=== PATIENT | female | born 1960 | race Caucasian/White ===

== ENCOUNTER 2020-10-15 20:45 | Inpatient (IN) | payer MEDICARE, OTHER ==
[~2020-10-15] VITALS: Ht 170.2 cm; Wt 52.6 kg
--- NOTE | 2020-10-15 20:55 | NUR ---
BIB [facility] FOR MEDICAL CLEARANCE FROM [facility], PLACED ON 5150 FOR DTS AND GD. PATIENT RESPONSIVE TO NAME BY OPENING EYES. IN ROOM AIR AND SATURAITON IS AT 100%. RESPIRATION REGULAR AND UNLABORED. PATIENT IS IN NO APPARENT DISTRESS. ATTACHED ON A MONITR. WARM BLANKET PROVIDED FOR COMFORT. WILL CONTINUE TO MONITOR THE PATIENT.
--- NOTE | 2020-10-15 21:25 | NUR ---
URINE COLLECTED AND SENT TO LAB
[2020-10-15 21:29] LABS: BASOPHILS % (AUTO) 0.7 % (0.0-2.0); EOSINOPHILS % (AUTO) 3.2 % (0.0-6.0); HEMATOCRIT 38 % (33-45); HEMOGLOBIN 12.2 g/dL (11.5-14.8); LYMPHOCYTES # (AUTO) 2.5 /CMM (0.8-4.8); LYMPHOCYTES % (AUTO) 39.6 % (20.0-44.0); MEAN CORPUSCULAR HGB CONC 32 g/dl (31.0-36.0); MEAN CORPUSCULAR VOLUME 88 fL (82-100); MONOCYTES # (AUTO) 0.6 /CMM (0.1-1.30); MONOCYTES % (AUTO) 10.3 % (2.0-12.0); NEUTROPHILS # (AUTO) 2.9 /CMM (1.8-8.9); NEUTROPHILS % (AUTO) 46.2 % (43.0-81.0); PLATELET COUNT (AUTO) 292 /CMM (150-450); RED BLOOD CELL COUNT(AUTO) 4.33 MIL/uL (4.0-5.2); WHITE BLOOD COUNT (AUTO) 6.2 K/uL (4.3-11.0)
[2020-10-15 21:49] LABS: CALCIUM, SERUM 10.1 mg/dL (8.5-10.1); CARBON DIOXIDE 26 mmol/L (21-32); CHLORIDE 107 mmol/L (98-107); CREATININE 0.6 mg/dL (0.6-1.3); GLUCOSE 94 mg/dL (74-106); SODIUM SERUM 140 mmol/L (136-145); UREA NITROGEN, BLOOD 26 mg/dL (7-18)
[2020-10-15 21:55] LABS: ALANINE AMINOTRANSFERASE 50 U/L (12-78); ALBUMIN 3.2 g/dL (3.4-5.0); ALCOHOL, BLOOD < 3 mg/dL (0-0); ALKALINE PHOSPHATASE 91 U/L (46-116); ASPARTATE AMINOTRANSFERASE 69 U/L (15-37); BILIRUBIN,DIRECT 0.1 mg/dL (0.0-0.2); BILIRUBIN,TOTAL 0.5 mg/dL (0.2-1.0); TOTAL PROTEIN, SERUM 6.5 g/dL (6.4-8.2)
[2020-10-15 21:56] LABS: ACETAMINOPHEN 0 ug/ml (10-30)
[2020-10-15 22:00] LABS: BILIRUBIN,URINE NEGATIVE (NEGATIVE); COLOR,URINE YELLOW (YELLOW); LEUKOCYTE ESTERASE ,URINE NEGATIVE (NEGATIVE); NITRITE, URINE NEGATIVE (NEGATIVE); PH,URINE 5.5 (5.0-8.0); PROTEIN,URINE NEGATIVE (NEGATIVE); UGLUCOSE NEGATIVE (NEGATIVE); UROBILINOGEN,URINE 0.2 EU/dL (0.2)
[2020-10-15] MEDS ORDERED: IV NS 0.9% 1,000 ML IV ONE (22:00)
--- NOTE | 2020-10-15 22:45 | NUR ---
COVID ANTIGEN NEGATIVE
--- NOTE | 2020-10-15 23:12 | NUR ---
report given to jerome romero for ulices; pt will be transported to gps
--- NOTE | 2020-10-15 23:20 | NUR ---
PT WAS TRANSFERRED TO GPS IN STABLE CONDITION
--- NOTE | 2020-10-15 23:30 | NUR ---
GPS ARCHITECT MANAGER NOTES: ADMITTED A 60YO FEMALE ON 515 HOLD FOR DANGER TO SELF AND GRAVE DISABILITY. PER HOLD, THE PATIENT WAS SCREAMING AND CURSING IN THE STREETS OF [place] AND [place]IA [place]. PATIENT APPEARS VERY UNKEMPT, DISHEVELED, DISORGANIZED, NOT ANSWERING TO ASSESSMENT QUESTIONS AND UNABLE TO PROVIDE A MEANINGFUL MEDICAL HISTORY PATIENT HAS BEEN ASLEEP SINCE ADMITTANCE TO THE UNIT. PATIENT IS UNDER THE CARE OF DR. OSMAN AND MARCELA ROJAS FOR PSYCH AND MEDICAL DOCTORS RESPECTIVELY. UPON FACE TO FACE ASSESSMENT, PATIENT PRESENTS ALERT AND ORIENTED X1 TO NAME ONLY. SHE IS NOT COOPERATIVE WITH STAFF. SHE HAS THE TENDENCY TO HIT THE STAFF. CARE PLAN FORMULATE SPECIFIC FOR THE PATIENT. Q15 MIN CHECKS INITIATED. BELONGINGS AND CONTRABAND CHECKED. ENVIRONMENTAL SAFETY CHECK DONE. PATIENT HAS NO KNOWN MEDICAL HISTORY. UNABLE TO ESTABLISH HER ALLERGIES WELL. PATIENT IS RESTING IN THE ROOM, BED ALARM KEPT ON. PATIENT ADVISED OF THE HOLD. OFFERED FLUID AND SNACKS. WILL MONITOR PATIENT FOR MOOD, SAFETY AND BEHAVIOR.
[2020-10-15 23:42] VITALS: BP 104/41
[2020-10-16] MEDS ORDERED: BLOOD SUGAR DIAGNOSTIC 1 EACH STRIP IN ONE (01:00)
[2020-10-16 07:53] LABS: ALBUMIN 2.9 g/dL (3.4-5.0); BILIRUBIN,TOTAL 0.5 mg/dL (0.2-1.0); CALCIUM, SERUM 9.5 mg/dL (8.5-10.1); CREATININE 0.5 mg/dL (0.6-1.3); POTASSIUM 3.8 mmol/L (3.5-5.1)
[2020-10-16 08:00] VITALS: BP 94/58
--- NOTE | 2020-10-16 14:15 | NUR ---
Psychosocial Attempt: SW made an attempt to speak to the pt in regards to her psychosocial assessment but the pt was asleep and was not easily arousable. SW will make another attempt the next day.
[2020-10-16 16:00] VITALS: BP 92/58
--- NOTE | 2020-10-16 18:48 | NUR ---
appetite good,but sleeping most of the day.
[2020-10-16 20:00] VITALS: BP 92/44
--- NOTE | 2020-10-16 20:00 | NUR ---
IN BED ASLEEP RESP EVEN AND UNLABORED.WHEN NAME SPOKE WILL TURN AWY FROM ME NOT OPENING HER EYES RESP EVEN AND UNLABORED.
[2020-10-16] MEDS ORDERED: ACETAMINOPHEN 325 MG TABLET PO PRN (20:30)
[2020-10-16] MEDS ORDERED: MAG HYDROX/AL HYDROX/SIMETH 30 ML UDC PO PRN (21:00)
--- NOTE | 2020-10-17 06:26 | NUR ---
ending notes: REFUSED 5/12 AM LAB DRAWS REFUSED TO GIVE A URINE SPEICMEN.
[2020-10-17 08:00] VITALS: BP 98/65
[2020-10-17 09:57] LABS: CREATININE 0.7 mg/dL (0.6-1.3)
[2020-10-17 10:54] LABS: CHOLESTEROL 169 mg/dL (<200); HDL CHOLESTEROL 62 mg/dL (40-60); LDL 90 mg/dL (0-99); TRIGLYCERIDES 113 mg/dL (30-150)
--- NOTE | 2020-10-17 12:05 | NUR ---
Psychosocial Attempt: SW made an attempt to speak to the pt in regards to her psychosocial assessment but the pt was asleep and was not arousable. Nurse informed the pt it was due to the pts methamphetamine abuse. SW will make another attempt the next day.
[2020-10-17 16:00] VITALS: BP 131/53
[2020-10-17] MEDS: OLANZAPINE 2.5 MG TABLET PO SCH (17:15)
[2020-10-17 21:30] VITALS: BP 140/85
[2020-10-18 08:00] VITALS: BP 109/76
[2020-10-18] MEDS: OLANZAPINE 2.5 MG TABLET PO SCH ×2 (09:02→20:58)
--- NOTE | 2020-10-18 15:12 | NUR ---
Initial Discharge Plan: SW will facilitate pts discharge plan to [facility] ([address] [place] [place] [address]; [phone]) or seek alternative placement. NANCY will work with the pt and the MD regarding appropriate discharge planning. SW will form a safe and proper discharge plan.
[2020-10-18 16:00] VITALS: BP 103/70
--- NOTE | 2020-10-18 19:05 | NUR ---
RN-NOTES UNABLE TO COLLECT URINE THIS SHIFT DUE TO PATIENT REFUSED TO GIVE URINE SPECIMEN. ENDORSED TO INCOMING NURSE FOR FOLLOW UP AND CONTINUITY OF CARE.
--- NOTE | 2020-10-18 19:24 | NUR ---
RN NOTES: RECEIVED PATIENT IN BED, AWAKE. ASKED IF SHE CAN KEEP HER URINE IN THE HAT FOR SPECIMEN COLLECTION, PATIENT DID NOT RESPOND, JUST MUMBLED AND TURNED HER FACE TO THE SIDE. AMBULATORY. AFTER FEW MINUTES, PATIENT WALKED OUTSIDE THE ROOM TO THE HALLWAY TALKING AND WENT BACK TO THE ROOM AND SLAMMED THE DOOR AND YELLING.
[2020-10-18 23:41] VITALS: BP 100/62
--- NOTE | 2020-10-19 02:37 | NUR ---
PATIENT TOOK SHOWER AT 2140.
[2020-10-19 08:00] VITALS: BP 118/68
[2020-10-19] MEDS: OLANZAPINE 5 MG TABLET PO SCH (08:12)
[2020-10-19] MEDS: MAGNESIUM HYDROXIDE 30 ML UDC PO PRN (15:51)
--- NOTE | 2020-10-19 15:51 | NUR ---
RN-NOTES PATIENT C/O CONSTIPATION, MOM 30ML GIVEN PRN ORDER. WILL CONT. MONITORING.
[2020-10-19 16:00] VITALS: BP 97/63
[2020-10-19 20:27] VITALS: BP 107/79
[2020-10-19 20:28] VITALS: BP 107/79
[2020-10-19] MEDS: OLANZAPINE 10 MG TABLET PO SCH (21:18)
--- NOTE | 2020-10-20 04:24 | NUR ---
RN NOTE PATIENT HAS BEEN SLEEPING WELL, NO BEHAVIOR EPISODES NOTED AT THIS TIME.
[2020-10-20 08:00] VITALS: BP 94/64
[2020-10-20] MEDS: OLANZAPINE 5 MG TABLET PO SCH (11:07)
--- NOTE | 2020-10-20 15:46 | NUR ---
KEEPS T SELF AND STAYS IN RM.ALL DAY.
[2020-10-20 16:00] VITALS: BP 105/66
[2020-10-20 20:54] VITALS: BP 99/74
[2020-10-20 21:00] VITALS: BP 99/74
[2020-10-20] MEDS: OLANZAPINE 10 MG TABLET PO SCH (21:24)
[2020-10-20] MEDS: MAGNESIUM HYDROXIDE 30 ML UDC PO PRN (21:26)
--- NOTE | 2020-10-20 21:27 | NUR ---
RN NOTE: LAXATIVE GIVEN PATIENT VERBALIZED THAT SHE IS CONSTIPATED & REQUESTED TO TAKE LAXATIVE, PRN MILK OF MAGNESIA 30 ML PO ADMINISTERED. WILL CONTINUE TO MONITOR.
--- NOTE | 2020-10-20 21:29 | NUR ---
RN NOTE URINE SPECIMEN COLLECTED & CALLED LAB TO [employer] URINE SPECIMEN.
[2020-10-20 21:50] VITALS: BP 107/71
[2020-10-21 00:49] LABS: BILIRUBIN,URINE NEGATIVE (NEGATIVE); COLOR,URINE YELLOW (YELLOW); LEUKOCYTE ESTERASE ,URINE NEGATIVE (NEGATIVE); NITRITE, URINE NEGATIVE (NEGATIVE); PH,URINE 6.5 (5.0-8.0); PROTEIN,URINE NEGATIVE (NEGATIVE); UGLUCOSE NEGATIVE (NEGATIVE); UROBILINOGEN,URINE 0.2 EU/dL (0.2)
[2020-10-21 00:53] LABS: BACTERIA,URINE Few /HPF (None Seen); RBC,URINE 0-2 /HPF (0-2); SQUAMOUS EPITHELIAL CELL,UR Few /HPF (None Seen); WBC,URINE 0-2 /HPF (0-3)
[2020-10-21 08:00] VITALS: BP 90/55
[2020-10-21] MEDS: OLANZAPINE 5 MG TABLET PO SCH (08:02)
[2020-10-21 16:00] VITALS: BP 110/75
[2020-10-21 21:45] VITALS: BP 107/77
[2020-10-21] MEDS: OLANZAPINE 10 MG TABLET PO SCH (21:58)
--- NOTE | 2020-10-22 06:47 | NUR ---
GPS RN CLOSING NOTES 220 PATIENT IN BED. ISOLATED. NO S/S OF DISTRESS. NO C/O PAIN.ALL SCHED MEDS GIVEN. SAFETY KEPT IN PLACE: BED IN LOWEST, LOCKED POSITION; BED ALARM IN PLACE. ALL NEEDS ATTENDED. WILL ENDORSE CARE TO MORNING SHIFT NURSE.
[2020-10-22 08:00] VITALS: BP 95/57
[2020-10-22] MEDS: OLANZAPINE 5 MG TABLET PO SCH (09:21)
--- NOTE | 2020-10-22 10:38 | NUR ---
Probable Cause Hearing: Pts [phone] hold was upheld for grave disability.
[2020-10-22 16:00] VITALS: BP 96/64
[2020-10-22 19:37] VITALS: BP 106/71
[2020-10-22] MEDS: OLANZAPINE 10 MG TABLET PO SCH (22:17)
[2020-10-22] MEDS: TEMAZEPAM 15 MG CAPSULE PO PRN (23:22)
--- NOTE | 2020-10-22 23:30 | NUR ---
GPS RN NOTES: PATIENT REQUESTED SLEEP FOR MEDICATION. RESTORIL 15MG/1TAB GIVEN PO PRN ORDERED AT 2322. WILL CONTINUE TO MONITOR.
[2020-10-23 08:00] VITALS: BP 102/59
[2020-10-23] MEDS: OLANZAPINE 5 MG TABLET PO SCH (08:40)
[2020-10-23 16:00] VITALS: BP 92/63
[2020-10-23] MEDS ORDERED: OLANZAPINE 10 MG VIAL IM STA (16:59)
[2020-10-23] MEDS ORDERED: LORAZEPAM INJ 2 MG/ML VIAL IM STA (16:59)
--- NOTE | 2020-10-23 17:13 | NUR ---
RN NOTE: EMERGENCY INJECTION PT BEGAN YELLING AND SCREAMING AT STAFF AND PATIENTS. SCREAMING PROFANITIES. UNABLE TO BE REDIRECTED. POSTURING TOWARD STAFF. PACING HALLWAYS. VERBALLY THREATENING STAFF. AGGRESSIVE BEHAVIOR TOWARD STAFF AND PATIENTS. HIGH RISK FOR SELF INJURY AND DANGER TO OTHERS. ORDER FROM DR. DAUGHERTY FOR ZYPREXA 5MG AND ATIVAN 1MG IM. IM ADMINISTERED TO RIGHT GLUTEUS. PATIENT TOLERATED WELL. WILL CONT TO MONITOR BEHAVIOR, SAFETY AND EFFECTIVENESS OF IM INJECTION
[2020-10-23 20:29] VITALS: BP 106/54
[2020-10-23] MEDS: OLANZAPINE 10 MG TABLET PO SCH (21:41)
--- NOTE | 2020-10-24 06:51 | NUR ---
GPS RN CLOSING NOTES: PATIENT IS LAYING ON BED SLEEPING. SLEPT 5HRS THIS SHIFT. PATIENT WAS MED COMPLIANT THIS SHIFT. NO S/S OF DISTRESS. RESPIRATION EVEN AND UNLABORED WITH EQUAL RISE AND FALL OF THE CHEST ON ROOM AIR. ALL PATIENT CARE NEEDS HAVE BEEN MET ANTICIPATED. BED IN LOWEST POSITION AND LOCKED WITH SIDE RAILS UP X2. WILL CONTINUE TO MONITOR FOR SAFETY, MOOD AND BEHAVIOR AND ENDORSE TO AM SHIFT
[2020-10-24 08:00] VITALS: BP 101/50
[2020-10-24] MEDS: LORAZEPAM 1 MG TABLET PO PRN (08:56)
[2020-10-24] MEDS: OLANZAPINE 5 MG TABLET PO SCH ×2 (08:56→21:08)
--- NOTE | 2020-10-24 08:57 | NUR ---
RN NOTE: ANXIETY AND AGITATION PT PACING IN ROOM. RESPONDING TO INTERNAL STIMULI. YELLING TO SELF. VISIBLY AGITATED. UNABLE TO REDIRECT AND CALM. MEDICATED WITH ATIVAN 1MG PO PRN. WILL CONT TO MONITOR FOR SAFETY AND BEHAVIOR WELL PRN EFFECTIVENESS.
[2020-10-24 16:00] VITALS: BP 121/74
[2020-10-24 20:00] VITALS: BP 105/59
[2020-10-24] MEDS: TEMAZEPAM 15 MG CAPSULE PO PRN (23:05)
[2020-10-25 08:00] VITALS: BP 97/70
[2020-10-25] MEDS: OLANZAPINE 5 MG TABLET PO SCH ×2 (08:02→21:23)
[2020-10-25] MEDS: LORAZEPAM 1 MG TABLET PO PRN (10:33)
--- NOTE | 2020-10-25 10:37 | NUR ---
RN-NOTES NOTED PATIENT PACING IN AND OUT HER ROOM, IRRITABLE AND ARGUMENTATIVE WITH THE STAFF. ATIVAN 1MG P.O GIVEN PRN ORDER. WILL CONT. MONITORING FOR SAFETY
--- NOTE | 2020-10-25 11:30 | NUR ---
RN-NOTES PATIENT LYING IN BED CALM,NO ACUTE DISTRESS NOTED.
--- NOTE | 2020-10-25 14:26 | NUR ---
RN-CO: WE RECEIVED THE CONSERVATORSHIP PAPERS, NANCY LIMON WILL ASK FOR THE CONSERVATOR TO SIGN THE AUTHORIZATION TO DETAIN AND TREAT.
--- NOTE | 2020-10-25 15:08 | NUR ---
Assisted Living Contact: SW called [facility] and left a message for the fire coordinator.
[2020-10-25 16:00] VITALS: BP 98/63
[2020-10-25 20:15] VITALS: BP 108/72
[2020-10-25 20:25] VITALS: BP 108/72
--- NOTE | 2020-10-26 07:06 | NUR ---
RN NOTE PATIENT SLEPT WELL AT NIGHT, NO BEHAVIOR EPISODE NOTED.
[2020-10-26 08:00] VITALS: BP 92/54
[2020-10-26] MEDS: OLANZAPINE 10 MG TABLET PO SCH ×2 (08:15→21:27)
--- NOTE | 2020-10-26 10:00 | NUR ---
Assisted Living Contact: SW called [facility] and was informed by the blood donor recruiter supervisor to send a referral to the fax number: [phone].
--- NOTE | 2020-10-26 10:02 | NUR ---
Assisted Living Referral: NANCY faxed a referral to [facility] [address] [facility] with attn to Mitra to the fax number: [phone].
[2020-10-26 16:00] VITALS: BP 105/76
[2020-10-26 20:11] VITALS: BP 113/69
[2020-10-26 20:12] VITALS: BP 113/69
--- NOTE | 2020-10-26 21:32 | NUR ---
RN NOTE: MAALOX GIVEN PATIENT C/O STOMACH UPSET, GAS, BELCHING & BLOATING & REQUESTED MEDICINE. PRN MAALOX 30 ML PO ADMINISTERED. WILL CONTINUE TO MONITOR.
[2020-10-27 08:00] VITALS: BP 105/72
[2020-10-27] MEDS: OLANZAPINE 10 MG TABLET PO SCH ×2 (08:39→21:14)
[2020-10-27] MEDS: DIVALPROEX SODIUM 250 MG TABLET.DR PO SCH ×4 (08:39→17:00)
--- NOTE | 2020-10-27 08:44 | NUR ---
REFUSED DEPAKOTE WANTS REPLACED.
[2020-10-27] MEDS: LORAZEPAM 1 MG TABLET PO PRN (13:14)
--- NOTE | 2020-10-27 13:15 | NUR ---
crying,teary eyed.verbalized wants to go home.
--- NOTE | 2020-10-27 13:20 | NUR ---
given ativan 1 mg po for agitation.
[2020-10-27 16:00] VITALS: BP 113/63
--- NOTE | 2020-10-27 18:55 | NUR ---
dr. alejandre made aware pt. requesting replacement for depakote as refusing depakote.
[2020-10-27 20:00] VITALS: BP 99/62
[2020-10-27 20:18] VITALS: BP 99/62
[2020-10-27 21:30] VITALS: BP 107/65
[2020-10-28 08:00] VITALS: BP 95/65
[2020-10-28] MEDS: DIVALPROEX SODIUM 250 MG TABLET.DR PO SCH ×4 (08:37→17:23)
[2020-10-28] MEDS: OLANZAPINE 10 MG TABLET PO SCH ×2 (08:37→21:32)
[2020-10-28] MEDS: LORAZEPAM 1 MG TABLET PO PRN ×2 (12:04→17:23)
[2020-10-28 16:00] VITALS: BP 94/60
[2020-10-28 20:00] VITALS: BP 94/52
[2020-10-28] MEDS: TEMAZEPAM 15 MG CAPSULE PO PRN (21:33)
--- NOTE | 2020-10-28 21:34 | NUR ---
Pt c/o insomnia. Least restrictive measures ineffective. Restoril 15 mg 1 cap po prn given as ordered. Will continue to monitor.
--- NOTE | 2020-10-28 22:35 | NUR ---
Restoril effective. Pt asleep in bed easy to arouse. Will continue to monitor. Frequent visual check done for safety.
[2020-10-29 08:00] VITALS: BP 91/57
[2020-10-29] MEDS: OLANZAPINE 10 MG TABLET PO SCH ×2 (08:05→22:11)
[2020-10-29] MEDS: DIVALPROEX SODIUM 250 MG TABLET.DR PO SCH ×3 (08:05→16:39)
--- NOTE | 2020-10-29 09:27 | NUR ---
Assisted Living Contact: SW called [facility] and spoke to Noble who stated that the pt will not be accepted as she was at the facility prior to her hospitalization and they are aware of her behaviors. Noble stated that the pt needs a higher level of care.
--- NOTE | 2020-10-29 09:40 | NUR ---
Individual Intervention: SW met with the pt and informed her that [facility] will not be taking her back due to her behaviors and that the SW can find alternate placement for her. Pt became distressed and asked to speak to the facility herself so the SW provided the pt with the phone number and the phone.
--- NOTE | 2020-10-29 10:04 | NUR ---
SNF Referral: NANCY faxed a referral to [facility] with attn to Yasemin to the fax number: [phone].
--- NOTE | 2020-10-29 13:20 | NUR ---
SNF Contact: Yasemin ([phone]) from [facility] contacted the SW and stated that she cannot accept the pt.
--- NOTE | 2020-10-29 13:37 | NUR ---
SNF Referral: NANCY faxed a referral to [facility] with attn to Freeman to the fax number: [phone].
[2020-10-29 16:00] VITALS: BP 106/66
--- NOTE | 2020-10-29 19:30 | NUR ---
RN NOTES PATIENT IN BED RESTING, EASILY AROUSED. NOT IN ANY APPARENT DISTRESS. A/O X 3. BREATHING EVEN AND UNLABORED. WILL MONITOR PATIENT CLOSELY.
[2020-10-29 20:00] VITALS: BP 105/74
[2020-10-30 08:00] VITALS: BP 99/65
[2020-10-30] MEDS: OLANZAPINE 10 MG TABLET PO SCH (08:09)
[2020-10-30] MEDS: DIVALPROEX SODIUM 250 MG TABLET.DR PO SCH ×3 (08:09→16:07)
--- NOTE | 2020-10-30 11:26 | NUR ---
Discharge Note: Pt will be discharged to [facility] ([facility]) located at [address] [place] [address]; ([phone]). Pt will be transported via [facility] at 4PM. Upon discharge, the pt appears to be alert and oriented x3 (time, place, and self). Pt appears to be in a depressed mood and presents with a calm mood. Pt denies both suicidal and homicidal ideation as well as auditory and visual hallucinations. Pt appears to be ambulatory with an unsteady gait. Pt appears to be well groomed and appropriately dressed. NANCY provided patient with the 2019 [facility] Program list. SW provided patient with a copy of the [facility] homeless directory which provides information on locations for hot meals, sack lunches, food pantries, and showers. NANCY provided an additional list of mental health clinics: [facility] [address] [place] [address] ([phone]); [facility] [address] [place] [address] ([phone]); a list of medical clinics; [facility] [address] [facility], [place]. [place], ; [facility] [address] [facility] [address], [place]. NANCY Provided [facility] [address] [place] [address]: ([phone]). Patient was provided with a brief substance abuse intervention and referred to the following substance abuse programs: [facility] Substance Abuse Self-helpline ([phone]); [facility] [address] [place] [address] ([phone]); [facility] [address] [facility] [place] [address] ([phone]); [facility] ([phone]); [facility] ([phone]); [facility] ([phone]); [facility] ([phone]). Pt will continue to be under the care of her psychiatrist, Dr. Singh, located at [address] [place] [address]; and ferryboat pilot, Dr. Fairbanks, located at [address] [place] [address]; . The choice of vendor form by the SW and the RN as the pt refused to sign and multidisciplinary exit care form were done, printed, signed, and given to the patient.
--- NOTE | 2020-10-30 14:27 | NUR ---
RN NOTE: REPORT CALLED TO ALVIN LING AT [facility]
[2020-10-30] MEDS: LORAZEPAM 1 MG TABLET PO PRN (14:28)
--- NOTE | 2020-10-30 14:28 | NUR ---
RN NOTE: ANXIETY AND AGITATION PT UPSET RE NOT BEING ABLE TO CONTACT FAMILY VIA TELEPHONE. PT BEGAN TO CRY AND BECAME ANXIOUS. MEDICATED WITH ATIVAN 1MG PO PRN.
--- NOTE | 2020-10-30 16:25 | NUR ---
ENGINEERING FACULTY MEMBER NOTE: 60 YEAR OLD FEMALE DISCHARGED TO [facility] IN STABLE CONDITION. COMPLIANT WITH MEDICATIONS, COOPERATIVE WITH TREATMENT PLANS. PATIENT DENIES SI/HI AND INSTRUCTED TO GO TO THE CLOSEST ER IF DEVELOPING SI/HI. BEHAVIOR IMPROVED, PSYCHIATRIC TREATMENT PLANS MET, MEDICAL TREATMENT PLANS DEFERRED FOR CONTINUAL MONITORING. EDUCATED PT ABOUT AFTER CARE PLAN AND COPY PROVIDED. RETURNED PERSONAL BELONGINGS TO PATIENT. MEDICATIONS RECONCILED WITH DR. OSMAN AND DR. JACOBSEN. REPORT GIVEN TO ALVIN LING FOR CONTINUITY OF CARE. PT REFUSED TO SIGN DISCHARGE PAPERWORK. PT REFUSED SKIN ASSESSMENT ON ADMIT AND DISCHARGE. PT LEFT THE UNIT VIA GURNEY WITH EMS PRESENT AT 1645. PATIENT ID BAND REMOVED. PT LEFT THE UNIT IN STABLE CONDITION.
== END 2020-10-30 16:25 | DRG 885 ==
LOC: ER 20:53 → GPS 22:10
PROVIDERS: ADMIT Psychiatry & Neurology Psychiatry; ATTEND Internal Medicine
DX: F25.9 Schizoaffective disorder, unspecified (principal); E43 Unspecified severe protein-calorie malnutrition; N17.0 Acute kidney failure with tubular necrosis; R64 Cachexia; F29 Unspecified psychosis not due to a substance or known physiological condition; F41.9 Anxiety disorder, unspecified; Z59.0 Homelessness; E86.0 Dehydration; Z73.6 Limitation of activities due to disability; F32.9 Major depressive disorder, single episode, unspecified; R53.1 Weakness; R27.8 Other lack of coordination; F19.10 Other psychoactive substance abuse, uncomplicated; Z91.19 Patient's noncompliance with other medical treatment and regimen; Z91.81 History of falling
CPT/HCPCS: 36415; 80048-TC; 80053-TC; 80061-TC; 80076-TC; 81001; 82565-TC; 82962-TC; 85025-TC; 87081-TC; G0480; J2060; J3490